=== PATIENT | male | born 1960 | race Caucasian/White ===

== ENCOUNTER → 2017-01-09 | Day surgery (SDC) | payer BC ==
[~2017-01-09] MED LIST: LISINOPRIL20 MG PO; MULTIVITAMINS1 EAC3 PO
--- NOTE | ~2017-01-09 | OR ---
Unit #: [id number] #: [id number] Patient: OG JIMENEZ [id number] [address] [place], [place] [address] [id number] MR#: [id number] NAME: OG JIMENEZ. ROOM: Date of Procedure: 01/09/2017 Admission Date: 01/09/2017 Surgeon: Ruben Dow M.D. : 1960 Attending Physician: Ruben Dow M.D. Referring Physician: Ruben Dow M.D. Primary Care Physician: Anoop Braga OPERATIVE REPORT PRIMARY CARE PHYSICIAN John Braga M.D. PREOPERATIVE DIAGNOSIS Colorectal cancer screening in an average risk patient. PROCEDURE PERFORMED Colonoscopy up to cecum and terminal ileum with biopsies. POSTOPERATIVE DIAGNOSES Completely normal examination up to cecum and terminal ileum. The patient did have nonspecific inflammation in the ileocecal valve. This was primarily in the form of friability, erythema, and erosions at the ileocecal valve and adjoining terminal ileum. There was however no stricture nor any cobblestoning. Biopsies obtained and sent for histology. The examination was otherwise completely normal. The patient did not have any polyps, diverticula, or hemorrhoids. RECOMMENDATIONS We will follow up results of biopsies and communicated with the patient. He was admitted for a colonoscopy in the future. SEDATION USED MAC. DESCRIPTION OF PROCEDURE Following detailed explanation of potential risks and complications of a colonoscopy, namely perforation, bleeding, and complications related to sedation, the patient was brought to GI lab and laid in the left lateral decubitus position. A digital rectal examination was performed, which was normal. Lubricated tip of the Olympus video colonoscope was inserted through the anus and advanced under direct vision. The scope was advanced and passed up to sigmoid into descending colon. No diverticula were noted in this area. The scope tip was then navigated all the way up to cecum with visualization of the ileocecal valve and the appendiceal orifice. Preparation was excellent with good visualization and photodocumentation was obtained. The ileocecal valve had some erythema, erosions, and friability, and intubation of the terminal ileum showed minimal erosions in this area; however, the patient did not have any stricturing nor any cobblestoning. The scope was then withdrawn to the cecum. Successive segments of the colic mucosa were examined upon withdrawal and appeared unremarkable. There being no polyps, mass lesions, AVMs, or diverticula. Unit #: [id number] #: [id number] Patient: OG JIMENEZ The patient did not have any hemorrhoids at anal verge. The scope was then withdrawn. The patient returned to the recovery area. He tolerated the procedure without any postprocedure complications. Dictated by... Yessi Moon/jessi TD: 01/09/2017 12:45 JOB #: [id number] CC: John Braga M.D. OPERATIVE REPORT Page 1 of 1 X Ruben Dow MD X PROCEDURE OPERATIVE NOTE
== END | disposition home or self-care (01) ==
LOC: COPS 07:21
DX: Z12.11 Encounter for screening for malignant neoplasm of colon (principal); K52.9 Noninfective gastroenteritis and colitis, unspecified; K62.89 Other specified diseases of anus and rectum; Z98.890 Other specified postprocedural states; Z90.49 Acquired absence of other specified parts of digestive tract; Z79.899 Other long term (current) drug therapy
CPT/HCPCS: 88305